=== PATIENT | male | born 1985 | race American Indian/Alaskan Native ===

== ENCOUNTER 2019-04-26 19:13 | Emergency (ER) | payer MEDICARE, OTHER ==
--- NOTE | 2019-04-26 19:31 | EDM.PDOC ---
ED HPI GENERAL MEDICAL PROBLEM - General Chief Complaint: Upper Extremity Injury/Pain Stated Complaint: HURT FINGER Time Seen by Provider: 04/26/19 19:20 Source of Information: Reports: Patient, Family History Limitations: Reports: No Limitations - History of Present Illness INITIAL COMMENTS - FREE TEXT/NARRATIVE: Matteo comes into [facility] ED with an injured L 3rd digit that was caught in a door closing at work today. He is a cook at the [employer]. There is pain, some welling and ecchymoses of the distal phalanx, and pain with bending at the DIP joint. There is no subungual hematoma. He has taken no analgesics. - Related Data Allergies Allergy/AdvReac Type Severity Reaction Status Date / Time No Known Allergies Allergy Verified 06/13/13 19:24 Home Meds: Home Meds Gabapentin 600 mg PO BID 06/13/13 [History] Lisinopril 40 mg PO DAILY 06/13/13 [History] Subcutaneous Insulin Pump [Insulin Pump] 1 each MC ASDIRECTED 06/13/13 [History] Metoclopramide HCl [Reglan] 10 tab PO TID 09/13/13 [History] Allopurinol [Zyloprim] 100 mg PO DAILY 09/11/16 [History] Aspirin [Adult Low Dose Aspirin EC] 81 mg PO DAILY 09/11/16 [History] Cholecalciferol (Vitamin D3) [Vitamin D3] 2,000 unit PO DAILY 09/11/16 [History] Docusate Sodium/Sennosides [Senokot-S] 1 each PO ASDIRECTED 09/11/16 [History] Insulin Glargine,Hum.Rec.Anlog [Lantus Solostar] 28 unit SQ ASDIRECTED 09/11/16 [History] Mag Hydrox/Al Hydrox/Simeth [Maalox Maximum Strength Susp] 360 ml PO QID PRN [History] Silver Sulfadiazine [Silvadene 1% Cream 20 GM] 1 applic TOP BID 09/11/16 [ History] atorvaSTATin [Lipitor] 20 mg PO BEDTIME 09/11/16 [History] buPROPion [Wellbutrin] 75 mg PO BID 09/11/16 [History] buPROPion [Wellbutrin] 200 mg PO BID 09/11/16 [History] Past Medical History HEENT History: Reports: Cataract, Impaired Vision Other HEENT History: NEVER BEEN TREATED FOR CATARACT, STATES ALSO HAS RETINOPATHY Cardiovascular History: Reports: High Cholesterol, Hypertension Respiratory History: Reports: Sleep Apnea Gastrointestinal History: Reports: Chronic Diarrhea, Colon Polyp, Other (See Below) Other Gastrointestinal History: REDCTAL BLEEDING, RUPTURE OF PANCREAS ET ALSO CYST REMOVAL AT AGE 2. PLACEMENT OF INSULIN PUMP Genitourinary History: Reports: Renal Disease, Other (See Below) Other Genitourinary History: HEMATURIA Musculoskeletal History: Reports: Other (See Below) Other Musculoskeletal History: CHRONIC OSTEOMYLITIS OF ANKLE AND FOOT, CELLULITIS OF RT LOWER LEG Neurological History: Reports: Neuropathy, Diabetic Psychiatric History: Reports: Depression Endocrine/Metabolic History: Reports: Diabetes, Type I, Obesity/BMI 30+, Vitamin D Deficiency Hematologic History: Reports: Other (See Below) Other Hematologic History: HYPERPHOSPHATEMIA Dermatologic History: Reports: Cellulitis - Infectious Disease History Infectious Disease History: Reports: Chicken Pox - Past Surgical History GI Surgical History: Reports: Colonoscopy Social & Family History - Family History Family Medical History: Noncontributory ED ROS GENERAL - Review of Systems Review Of Systems: ROS reveals no pertinent complaints other than HPI. ED EXAM, GENERAL - Physical Exam Exam: See Below Exam Limited By: No Limitations General Appearance: Alert, WD/WN, Mild Distress Head: Normocephalic Neck: Normal Inspection, Supple Respiratory/Chest: Lungs Clear Cardiovascular: Regular Rate, Rhythm (Male) Exam: Deferred Rectal (Males) Exam: Deferred Back Exam: Normal Inspection Extremities: Limited Range of Motion (L 3rd digit: ecchymoses and swelling of distal phalanx, no subungual hematoma, some guarding with flexion at the DIP joint, CMS notes some decreased sensory to pinprick) Neurological: Alert, Oriented, CN II-XII Intact, Sensory/Motor Deficit (chronic) Skin Exam: Warm, Dry, Intact, Ecchymosis Lymphatic: No Adenopathy Course - Vital Signs Text/Narrative:: I reviewed x rays of L 3rd digit, revealing a tuft fx in good position. - Orders/Labs/Meds Orders: Active Orders 24 hr Category Date Time Status Fingers Third Digit Lt F2 [CR] Stat Exams 04/26/19 19:27 Taken Departure - Departure Time of Disposition: 20:10 Disposition: Home, Self-Care 01 Condition: Fair Clinical Impression: Closed fracture of tuft of distal phalanx of finger - Discharge Information *PRESCRIPTION DRUG MONITORING PROGRAM REVIEWED*: Not Applicable *COPY OF PRESCRIPTION DRUG MONITORING REPORT IN PATIENT HEATHER: Not Applicable Instructions: RICE Therapy for Routine Care of Injuries, [id number], Finger Fracture, Adult, [id number] Referrals: PCP,None [Primary Care Provider] - Forms: ED Department Discharge Additional Instructions: Wear splint as needed. May work. Activity as tolerated. Tylenol for pain. - Problem List & Annotations (1) Closed fracture of tuft of distal phalanx of finger SNOMED Code(s): 765677318 Code(s): S62.639A - DISP FX OF DISTAL PHALANX OF UNSP FINGER, INIT FOR CLOS FX Status: Acute Current Visit: Yes Annotation/Comment:: I proved a minor splint for comfort and protection, and suggested Tylenol for pain, RICE, and elevate. - Problem List Review Problem List Initiated/Reviewed/Updated: Yes - My Orders Last 24 Hours: My Active Orders 04/26/19 19:27 Fingers Third Digit Lt F2 [CR] Stat - Assessment/Plan Last 24 Hours: My Active Orders 04/26/19 19:27 Fingers Third Digit Lt F2 [CR] Stat Plan: Follow up with PCP if needed.
[2019-04-26 22:52] VITALS: BP 120/94; PULSE 107
--- NOTE | 2019-04-27 11:07 | CR ---
INDICATION: Caught in door that was closing, distal portion of left third finger. LEFT THIRD DIGIT: Three views of the left third finger were obtained 04/26/19 - no comparisons. There is a fracture of the ungual tuft medially with a fracture line extending obliquely through the dorsal cortex of the mid to distal shaft of the distal phalanx of the third left finger. Position and alignment appears to be satisfactory. No other significant bone or joint abnormality was identified. MTDD
== END 2019-04-26 20:15 | disposition home or self-care (01) ==
LOC: FB.ED 19:13
DX: S62.633A Displaced fracture of distal phalanx of left middle finger, initial encounter for closed fracture (principal); I10 Essential (primary) hypertension; E10.40 Type 1 diabetes mellitus with diabetic neuropathy, unspecified; E78.00 Pure hypercholesterolemia, unspecified; F32.9 Major depressive disorder, single episode, unspecified; E66.9 Obesity, unspecified; Z68.33 Body mass index [BMI] 33.0-33.9, adult; Z79.82 Long term (current) use of aspirin; Z79.899 Other long term (current) drug therapy; W23.1XXA Caught, crushed, jammed, or pinched between stationary objects, initial encounter
CPT/HCPCS: 73140-F2; 99283-25

== ENCOUNTER 2022-10-16 05:51 | Emergency (ER) | payer OTHER ==
[2022-10-16 06:16] VITALS: PULSE 91
[2022-10-16 06:31] VITALS: BP 146/110
[2022-10-16] MEDS ORDERED: Acetaminophen/HYDROcodone 325-5 MG Tab PO STA (07:00)
== END 2022-10-16 07:15 | disposition home or self-care (01) ==
LOC: FB.ED 05:51
DX: S60.212A Contusion of left wrist, initial encounter (principal); I10 Essential (primary) hypertension; E10.40 Type 1 diabetes mellitus with diabetic neuropathy, unspecified; E66.9 Obesity, unspecified; Z68.34 Body mass index [BMI] 34.0-34.9, adult; Z89.429 Acquired absence of other toe(s), unspecified side; W01.0XXA Fall on same level from slipping, tripping and stumbling without subsequent striking against object, initial encounter
CPT/HCPCS: 73110-LT; 99283; A9270-GY